=== PATIENT | female | born 1960 | race Caucasian/White ===

== ENCOUNTER 2019-02-26 15:32 | Emergency (ER) | payer OTHER, SELFPAY ==
[2019-02-26 16:49] VITALS: BP 119/59; PULSE 70; RESP 16; TEMP 37.2; O2SAT 96; BMI 29.7
--- NOTE | 2019-02-26 16:54 | DI.RAD.S_ITS ---
PROCEDURE: XR FOOT RT MIN 3V INDICATIONS: FELL RIGHT FOOT PAIN TECHNIQUE: 2 views of the foot were acquired. COMPARISON: None. FINDINGS: Bones: No fractures or dislocations. No suspicious bony lesions. Posterior calcaneal spur. Mild diffuse midfoot spurring. Presumed chronic ununited osteophyte versus dystrophic ossification projecting adjacent to the third MTP joint Soft tissues: No tibiotalar joint effusion. Achilles tendon appears normal. IMPRESSION: No fracture. Scattered degenerative changes as above Dictated by: Karel Ordonez M.D. on 02/26/2019 at 17:14 Approved by: Karel Ordonez M.D. on 02/26/2019 at 17:17
[2019-02-26 19:35] VITALS: BP 115/65; PULSE 64; RESP 18; O2SAT 97
--- NOTE | 2019-02-26 20:43 | ED_ITS ---
HPI - Extremity Injury (Lower) <SHORTY Romero-BC - Last Filed: 02/26/19 20:48> General Chief Complaint: Extremity Injury, Lower Stated Complaint: right foot injury from fall, swelling Time Seen by Provider: 02/26/19 18:55 Source: patient Mode of arrival: Wheelchair Limitations: no limitations History of Present Illness HPI Narrative: The patient is a 58-year-old female nonsmoker with history of asthma who presents with a chief complaint of right foot pain. She states that she tripped going down stairs last night, and now has bruising and pain over the top of her right foot. She has tried elevation and ice. She is unable to take ibuprofen. She has tried Tylenol. She is concerned about a fracture. She denies any numbness or tingling. She denies any other injuries. Related Data Home Medications Medication Instructions Recorded Confirmed albuterol sulfate [ProAir INHALATION 02/26/19 RespiClick] levothyroxine [Synthroid] 100 mcg PO DAILY 02/26/19 02/26/19 Allergies Allergy/AdvReac Type Severity Reaction Status Date / Time acetaminophen [From Percocet] Allergy Verified 02/26/19 16:54 Egg Derived Allergy Verified 02/26/19 16:54 Latex, Natural Rubber Allergy Verified 02/26/19 16:54 oxycodone [From Percocet] Allergy Verified 02/26/19 16:54 azithromycin [From Zithromax] AdvReac Verified 02/26/19 16:54 codeine AdvReac Verified 02/26/19 16:54 erythromycin base AdvReac Verified 02/26/19 16:54 morphine AdvReac Verified 02/26/19 16:54 nitrofurantoin AdvReac Verified 02/26/19 16:54 [From Macrobid] Review of Systems <MANUEL RomeroBC - Last Filed: 02/26/19 20:48> Review of Systems Narrative: GENERAL: Denies chills, fatigue, malaise, fever, sweats. HEENT: Denies sinus pain, ear pain, sore throat, difficulty swallowing, dizziness. RESPIRATORY: Denies dyspnea, cough, wheezing, hemoptysis, sputum. CARDIOVASCULAR: Denies chest pain, palpitations, orthopnea, edema, GASTROINTESTINAL: Denies nausea, vomiting, abdominal pain, diarrhea, constipation, melena. : Denies dysuria, frequency, incontinence, hematuria, urinary retention. MUSCULOSKELETAL: See HPI SKIN: See HPI NEUROLOGIC: Denies weakness, headache, numbness, change in speech, confusion, seizures, incoordination. PSYCHIATRIC: No concerning psychosocial issues. 12 point review of systems is negative except for those stated above Patient History <Clementina FournierSHORTY- - Last Filed: 02/26/19 20:48> Social History Smoking Status: Never smoker Smoking Status: Never smoker Substance Use Type: does not use Exam <[facility] - Last Filed: 02/26/19 20:48> Narrative Exam Narrative: GENERAL: This is a well-nourished, well-developed patient, no acute distress HEAD: Atraumatic. Normocephalic. No temporal or scalp tenderness. EYES: Pupils equal round and reactive. Extraocular motions intact. No scleral icterus. No injection or drainage. ENT: Nose without bleeding, purulent drainage or septal hematoma. Throat without erythema, tonsillar hypertrophy or exudate. Uvula midline. Airway patent. NECK: Trachea midline. No JVD or lymphadenopathy. Supple, nontender, no meningeal signs. CARDIOVASCULAR: Regular rate and rhythm RESPIRATORY: No cough. No increased respiratory effort. No accessory muscle use. EXTREMITIES: Pain to palpation of right foot over navicular. Positive pedal pulses right foot. Wiggling all toes. Able to flex and extend right foot. No pain to palpation right ankle. Capillary refill less than 2 seconds all toes right foot. BACK: Nontender without deformity or crepitance. No flank tenderness. NEURO: AOx3. SKIN: 2 x 2 cm area of ecchymosis noted over right navicular Initial Vital Signs Initial Vital Signs: Vital Signs Temperature 98.9 F 02/26/19 16:49 Pulse Rate 70 02/26/19 16:49 Respiratory Rate 16 02/26/19 16:49 Blood Pressure 119/59 L 02/26/19 16:49 Pulse Oximetry 96 02/26/19 16:49 <Sukhjinder Keane DO - Last Filed: 02/27/19 01:27> Initial Vital Signs Initial Vital Signs: Vital Signs Temperature 98.9 F 02/26/19 16:49 Pulse Rate 70 02/26/19 16:49 Respiratory Rate 16 02/26/19 16:49 Blood Pressure 119/59 L 02/26/19 16:49 Pulse Oximetry 96 02/26/19 16:49 Procedures <SHIVA Romero - Last Filed: 02/26/19 20:48> Orthopedic Splinting/Casting Injury #1: Side: right Lower Extremity Injury Location: foot Lower Extremity Immobilizer: post-op shoe Post splinting neuro exam: intact Post splinting vascular exam: intact Placed by: Nursing Course <SHIVA Romero - Last Filed: 02/26/19 20:48> Orders Ordered: ED Orders 02/26/19 16:54 XR foot RT min 3V Stat Vital Signs Vital signs: Vital Signs - 8 hr 02/26/19 19:35 Pulse Rate 64 Respiratory Rate 18 Blood Pressure [Left Arm] 115/65 Pulse Oximetry 97 <Sukhjinder Keane DO - Last Filed: 02/27/19 01:27> Orders Ordered: ED Orders 02/26/19 16:54 XR foot RT min 3V Stat Vital Signs Vital signs: Vital Signs - 8 hr 02/26/19 19:35 Pulse Rate 64 Respiratory Rate 18 Blood Pressure [Left Arm] 115/65 Pulse Oximetry 97 MDM - Extremity Injury (Lower) <SHIVA Romero - Last Filed: 02/26/19 20:48> Imaging Data Extremity x-ray #1: Radiologist's Impression: [place] [address] XRay Report Signed Patient: Yaa Yanes VMR#: [id number] : 1960Acct:[id number] Age/Sex: 58 / FDate of Service: 02/26/19 Loc: ED Accession Number: [id number] Procedure: XR foot RT min 3V Ordering Provider: Clementina Nascimento D.O. PROCEDURE: XR FOOT RT MIN 3V INDICATIONS: FELL RIGHT FOOT PAIN TECHNIQUE: 2 views of the foot were acquired. COMPARISON: None. FINDINGS: Bones: No fractures or dislocations. No suspicious bony lesions. Posterior calcaneal spur. Mild diffuse midfoot spurring. Presumed chronic ununited osteophyte versus dystrophic ossification projecting adjacent to the third MTP joint Soft tissues: No tibiotalar joint effusion. Achilles tendon appears normal. IMPRESSION: No fracture. Scattered degenerative changes as above Dictated by: Karel Ordonez M.D. on 02/26/2019 at 17:14 Approved by: Karel Ordonez M.D. on 02/26/2019 at 17:17 [facility] Narrative Medical decision making narrative: The patient is a 58-year-old female who presents with a chief complaint of right foot pain after tripping and missing a step last night. She has ecchymosis and tenderness on exam. X-rays negative for fracture. Discussed possibility of soft tissue injury, occult fracture cetera. Patient was placed in a postoperative shoe and felt improved. Discussed at length rest ice compression elevation as well as the importance of follow-up with primary care provider. Patient states she does not tolerate pain medication and does not want any. Patient has no questions or concerns upon discharge and states understanding of return precautions of any acute concerns as well as follow-up care. Discharge Plan Departure Patient Disposition: Home Clinical Impression: Contusion of foot, right Qualifiers: Encounter type: initial encounter Qualified Code(s): S90.31XA - Contusion of right foot, initial encounter Acute foot pain Qualifiers: Laterality: right Qualified Code(s): M79.671 - Pain in right foot Discharge Date/Time: 02/26/19 19:46 Instructions: DI for Contusion, How To Perform RICE (Rest, Ice, Compress, Elevate) Activity Restrictions/Additional Instructions: As I discussed, your x-ray shows no acute fracture. This does not rule out a soft tissue injury such as a ligament or tendon injury. It is important that you follow up with primary care provider, especially if worsening or no improvement. There can be fractures that did not show up on initial x-ray. Please follow-up with primary care provider in a few days. Please use rest ice compression elevation as well as [id number] medications as needed and able. Please come back to the emergency department for any acute concerns. Prescriptions: No Action levothyroxine [Synthroid] 100 mcg tablet 100 mcg PO DAILY RF: 0 ProAir RespiClick 90 mcg/actuation aerosol powdr breath activated INHALATION RF: 0 Referrals: Rocael Pinto MD [Primary Care Provider] -
== END 2019-02-26 19:46 | disposition home or self-care (01) ==
PROVIDERS: Emergency Provider Nurse Practitioner Family; Family Provider Family Medicine; PCP Family Medicine
DX: S90.31XA Contusion of right foot, initial encounter (principal); W10.9XXA Fall (on) (from) unspecified stairs and steps, initial encounter
CPT/HCPCS: 73630; 99281; 99283

== ENCOUNTER 2021-11-06 17:19 | Emergency (ER) | payer OTHER, SELFPAY ==
[2021-11-06 17:33] VITALS: BP 134/65; PULSE 64; RESP 18; TEMP 36.8; O2SAT 98; BMI 30.4
--- NOTE | 2021-11-06 19:06 | DI.RAD.S_ITS ---
PROCEDURE: XR FOOT RT MIN 3V INDICATIONS: swelling dorsum lateral foot after crush injury TECHNIQUE: 3 views of the foot were acquired. COMPARISON: [facility], , XR FOOT RT MIN 3V, 02/26/2019, 16:51. FINDINGS: Bones: No fractures or dislocations. No suspicious bony lesions. Soft tissues: No tibiotalar joint effusion. Achilles tendon appears normal. IMPRESSION: Normal right foot Dictated by: Maninder Trammell M.D. on 11/06/2021 at 19:39 Approved by: Maninder Trammell M.D. on 11/06/2021 at 19:40
--- NOTE | 2021-11-06 19:06 | ED.LOWEXIN ---
HPI - Extremity Injury (Lower) General Chief Complaint: Extremity Injury, Lower Stated Complaint: Cyst rupture on rt foot Time Seen by Provider: 11/06/21 18:58 Source: patient Mode of arrival: Ambulatory Limitations: no limitations History of Present Illness HPI Narrative: Patient is a 61-year-old female who states that she has a cyst on her right foot that developed after an injury in the past. She is scheduled to have this removed by foot and ankle specialist. 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 She states that ever since that time the cyst seems to be smaller and there is swelling around the area. She is also having difficulty walking on the foot. She was concerned that potentially the cyst had ruptured and your family member had told her that there is potentially an infection. Related Data Home Medications Medication Instructions Recorded Confirmed albuterol sulfate 90 mcg/actuation See Rx Instructions .Route 02/26/19 11/06/21 breath activated powder inhaler .COMPLEX PRN Shortness Of Breath (ProAir RespiClick) levothyroxine 100 mcg tablet 100 mcg PO DAILY 02/26/19 11/06/21 (Synthroid) Allergies Allergy/AdvReac Type Severity Reaction Status Date / Time acetaminophen [From Percocet] Allergy Verified 11/06/21 17:35 Egg Derived Allergy Verified 11/06/21 17:35 Latex, Natural Rubber Allergy Verified 11/06/21 17:35 oxycodone [From Percocet] Allergy Verified 11/06/21 17:35 azithromycin [From Zithromax] AdvReac Verified 11/06/21 17:35 codeine AdvReac Verified 11/06/21 17:35 erythromycin base AdvReac Verified 11/06/21 17:35 morphine AdvReac Verified 11/06/21 17:35 nitrofurantoin AdvReac Verified 11/06/21 17:35 [From Macrobid] Review of Systems Constitutional Constitutional: Reports system reviewed and no additional complaints, except as documented Musculoskeletal Musculoskeletal: Reports system reviewed and no additional complaints, except as documented Integumentary/Breasts Skin/Breast: Reports system reviewed and no additional complaints, except as documented Neurologic Neurologic: Reports system reviewed and no additional complaints, except as documented Patient History Medical History Hypothyroid Social History Smoking Status: Never smoker Smoking Status: Never smoker Substance Use Type: does not use Exam Initial Vital Signs Initial Vital Signs: Vital Signs Temperature 98.2 F 11/06/21 17:33 Pulse Rate 64 11/06/21 17:33 Respiratory Rate 18 11/06/21 17:33 Blood Pressure 134/65 11/06/21 17:33 Pulse Oximetry 98 11/06/21 17:33 Oxygen Delivery Method 11/06/21 17:33 Const General: cooperative and comfortable HENMT Head: normal to inspection and normocephalic Resp Effort & Inspection: normal respiratory effort Cardio Rate: regular rate Pulses: dorsalis pedis present on the right Skin Other: Slight swelling along the lateral aspect of the right midfoot. There is no erythema. Neuro Other: Patient reports some tingling to the distal portion of the right foot lateral aspect. Extrem Other: Swelling and discomfort to the lateral aspect of the right midfoot. Ankle is unremarkable. Achilles tendons unremarkable. Right calf muscles unremarkable. Course Orders Ordered: ED Orders 11/06/21 19:06 XR foot RT min 3V Stat Vital Signs Vital signs: Vital Signs - 8 hr 11/06/21 17:33 Temperature 98.2 F Pulse Rate 64 Respiratory Rate 18 Blood Pressure 134/65 Pulse Oximetry 98 Oxygen Delivery Method Room Air MDM - Extremity Injury (Lower) MDM Narrative Medical decision making narrative: X-ray shows no signs of fracture. She does have swelling along the lateral aspect of the right mid foot. There does appear to be a small cyst in this area with the patient states it is smaller. Informed her that there is the possibility of assisted rupture given the fact that the area did have a crush injury to it. There is no signs of any infection. No further workup required here in the emergency department. Will have her continue to follow-up with the orthopedic providers. She was given return precautions. She expressed understanding and agreement. Discharge Plan Departure Patient Disposition: Home Clinical Impression: Contusion of foot, right Instructions: DI for Contusion Activity Restrictions/Additional Instructions: You can ice your foot. You can use the lidocaine patches like we discussed. I do recommend you contact the foot and ankle certified medical coding specialist tomorrow to let them know that you were seen here in the ER. Return to the emergency department for any new or worsening symptoms. Prescriptions: No Action levothyroxine [Synthroid] 100 mcg tablet 100 mcg PO DAILY ProAir RespiClick 90 mcg/actuation aerosol powdr breath activated See Rx Instructions .ROUTE .COMPLEX PRN (Reason: Shortness Of Breath) Rx Instructions: 1 puff Referrals: Sadaf Leigh PA-C [Primary Care Provider] - Visit Report Forms: Patient Portal/API
== END 2021-11-06 20:02 | disposition home or self-care (01) ==
PROVIDERS: Emergency Provider Emergency Medicine; Family Provider Family Medicine; PCP Physician Assistant
DX: S90.31XA Contusion of right foot, initial encounter (principal)
CPT/HCPCS: 73630; 99281; 99283

== ENCOUNTER 2023-11-02 16:54 | Emergency (ER) | payer OTHER, SELFPAY ==
[2023-11-02 16:58] VITALS: BP 127/59; PULSE 63; RESP 16; TEMP 36.3; O2SAT 98
--- NOTE | 2023-11-02 17:02 | DI.RAD.S_ITS ---
PROCEDURE: XR FOOT RT MIN 3V INDICATIONS: pain with ambulation TECHNIQUE: 3 views of the foot were acquired. COMPARISON: [facility], CR, XR FOOT RT MIN 3V, 11/06/2021, 19:06. [facility], CR, XR FOOT RT MIN 3V, 02/26/2019, 16:51. FINDINGS: Bones: No fractures or dislocations. No suspicious bony lesions. An Achilles insertional enthesophyte is present. Soft tissues: No tibiotalar joint effusion. Achilles tendon appears normal. IMPRESSION: No acute bony abnormality. Dictated by: Huma Cruz M.D. on 11/02/2023 at 16:19 Approved by: Huma Cruz M.D. on 11/02/2023 at 16:20
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
== END 2023-11-02 17:45 | disposition home or self-care (01) ==
PROVIDERS: Emergency Provider Registered Nurse; Family Provider Family Medicine
DX: M79.671 Pain in right foot (principal); X58.XXXA Exposure to other specified factors, initial encounter
CPT/HCPCS: 73630; 99283

== ENCOUNTER 2024-02-08 11:07 | Emergency (ER) | payer OTHER, SELFPAY ==
[2024-02-08 11:14] VITALS: BP 138/59; PULSE 71; RESP 16; TEMP 37.1; O2SAT 97; BMI 30.9
--- NOTE | 2024-02-08 11:20 | ED_ITS ---
HPI - Extremity Injury (Lower) <Cheryl Hernandez PA-C - Last Filed: 02/08/24 12:44> General Chief Complaint: Extremity Injury, Lower Stated Complaint: Sanchez no longer load bearing Time Seen by Provider: 02/08/24 11:19 Source: patient Mode of arrival: Wheelchair History of Present Illness HPI Narrative: A 63-year-old woman with a history of hypothyroid presenting with concern for right knee pain and difficulty weight-bearing since last night. Patient states she went to the [employer] and was on the dance floor dancing to a [employer] song. She says ?I think I am 19 but I am not 20?. She states she had her hands up in the air and she was jumping up and when she came down to land she felt a pop in her right knee and it felt like it was giving out. She did not go to the ground but she required assistance from her daughter to get off the dance floor. Went home last night and had a lot of difficulty getting up the exterior steps into her home she applied Voltaren gel and also tried some numbing topical medicine over the knee and took Tylenol last night. This morning when she wake up she attempted to bear weight and was unable to. She states it was a combination of pain and feeling like her knee might ?give out?. She has been scooting around on her but since then and using assistance to move. She does state that about 5 years ago she may have injured her right knee did have to have physical therapy for it after she had some gait changes and a cyst on her right foot removed. She occasionally has pain in the right knee since that time. Today on the drive in she felt like her lower leg was a little ?tingly?. Her leg is most comfortable fairly straight or slightly bent she states her pain is worse if she flexes it to 90?. She also endorses that she has some pain traveling up the back of her thigh on the right side feels like ?a muscle?. She denies any other injuries complaints or concerns. Related Data Home Medications Medication Instructions Recorded Confirmed albuterol sulfate 90 mcg/actuation See Rx Instructions .Route 02/26/19 11/06/21 breath activated powder inhaler .COMPLEX PRN Shortness Of Breath (ProAir RespiClick) levothyroxine 100 mcg tablet 100 mcg PO DAILY 02/26/19 11/06/21 (Synthroid) Allergies Allergy/AdvReac Type Severity Reaction Status Date / Time Egg Derived Allergy Anaphylaxis Verified 02/08/24 11:18 azithromycin [From Zithromax] AdvReac Verified 02/08/24 11:18 codeine AdvReac Vomiting Verified 02/08/24 11:18 erythromycin base AdvReac Verified 02/08/24 11:18 Latex, Natural Rubber AdvReac Rash Verified 02/08/24 11:18 morphine AdvReac Vomiting Verified 02/08/24 11:18 nitrofurantoin AdvReac Verified 02/08/24 11:18 [From Macrobid] oxycodone [From Percocet] AdvReac Vomiting Verified 02/08/24 11:18 Review of Systems <Cheryl Hernandez PA-C - Last Filed: 02/08/24 12:44> Review of Systems Narrative: See HPI Patient History <Cheryl Hernandez PA-C - Last Filed: 02/08/24 12:44> Medical History Hypothyroid Social History Smoking Status: Never smoker Smoking Status: Never smoker Exam <Cheryl Hernandez PA-C - Last Filed: 02/08/24 12:44> Narrative Exam Narrative: GENERAL: [63] year old patient appears stated age. Well-developed patient, in mild distress. HEAD: Atraumatic. Normocephalic. EYES: Pupils equal round and reactive. Extraocular motions intact. No scleral icterus. No injection or drainage. ENT: Nose without bleeding, purulent drainage. Airway patent. NECK: Trachea midline. CARDIOVASCULAR: Regular rate and rhythm. RESPIRATORY: Increased work of breathing or respiratory distress GASTROINTESTINAL: Abdomen nondistended. EXTREMITIES: Right knee is held slightly flexed at about 15?. There is mild swelling of the lateral knee joint with tenderness most prominent in the popliteal fossa laterally, also medial joint line tenderness on the right. Negative anterior posterior drawer. She is able to perform dorsiflexion and plantar flexion of the ankle but this increases her knee pain. Strong distal pulse. Skin color is pink, warm. There is no ballottement or tenderness of the anterior knee or medial knee. No edema or joint tenderness. NEURO: AOx3. SKIN: No rash or erythema of visible areas Initial Vital Signs Initial Vital Signs: Vital Signs Temperature 98.8 F 02/08/24 11:14 Pulse Rate 71 02/08/24 11:14 Respiratory Rate 16 02/08/24 11:14 Blood Pressure 138/59 L 02/08/24 11:14 Pulse Oximetry 97 02/08/24 11:14 Oxygen Delivery Method Room Air 02/08/24 11:14 <Joselyn Morgan DO - Last Filed: 02/09/24 07:03> Initial Vital Signs Initial Vital Signs: Vital Signs Temperature 98.8 F 02/08/24 11:14 Pulse Rate 71 02/08/24 11:14 Respiratory Rate 16 02/08/24 11:14 Blood Pressure 138/59 L 02/08/24 11:14 Pulse Oximetry 97 02/08/24 11:14 Oxygen Delivery Method Room Air 02/08/24 11:14 Course <Cheryl Hernandez PA-C - Last Filed: 02/08/24 12:44> Orders Ordered: Discontinued Medications Acetaminophen (Acetaminophen 325 Mg Tablet) 650 mg PO NOW ONE Stop: 02/08/24 11:36 Last Admin: 02/08/24 12:00 Dose: 650 mg Documented By: ANNA Vital Signs Vital signs: Vital Signs - 8 hr 02/08/24 11:14 Temperature 98.8 F Pulse Rate 71 Respiratory Rate 16 Blood Pressure 138/59 L Pulse Oximetry 97 Oxygen Delivery Method Room Air <Joselyn Morgan DO - Last Filed: 02/09/24 07:03> Orders Ordered: Discontinued Medications Acetaminophen (Acetaminophen 325 Mg Tablet) 650 mg PO NOW ONE Stop: 02/08/24 11:36 Last Admin: 02/08/24 12:00 Dose: 650 mg Documented By: ANNA Vital Signs Vital signs: Vital Signs - 8 hr 02/08/24 11:14 Temperature 98.8 F Pulse Rate 71 Respiratory Rate 16 Blood Pressure 138/59 L Pulse Oximetry 97 Oxygen Delivery Method Room Air MDM - Extremity Injury (Lower) <CATA Thorne Last Filed: 02/08/24 12:44> Imaging Data Extremity x-ray #1: My Impression: Agree with Radiology interpretation Radiologist's Impression: [address] [address] XRay Report Signed Patient: Yaa Yanes V MR#: [id number] : 1960 Acct:[id number] Age/Sex: 63 / F Date of Service: 02/08/24 Loc: ED Accession Number: [id number] Procedure: XR knee RT 3V Ordering Provider: Cheryl Hernandez PA-C PROCEDURE: XR KNEE RT 3V INDICATIONS: non weightbear rknee since injury/jump land pop TECHNIQUE: 3 views of the knee were acquired. COMPARISON: None. FINDINGS: Bones: No fractures or dislocations. No suspicious bony lesions. Soft tissues: No joint effusion. No suspicious soft tissue calcifications. IMPRESSION: No acute bony abnormality or significant effusion. Dictated by: Huma Cruz M.D. on 02/08/2024 at 11:07 Approved by: Huma Cruz M.D. on 02/08/2024 at 11:08 [facility] Narrative Medical decision making narrative: This is a 63-year-old woman with hypothyroid, previous knee injury about 5 years ago presenting with concern for right knee pain and difficulty weight-bearing since she landed on it last night after jumping and felt a pop. X-rays obtained for further evaluation. Exam is concerning for possibly sprain/muscle strain and /or Ng's cyst rupture Xrays show: No evidence of fracture and no effusion Patient placed in a knee brace and provided with crutches/crutch training. Advised regarding RI CE, attempting to be nonweightbearing as much as possible gradual return to normal activity as tolerated. Information provided for office number of physical therapy and orthopedics. Return precautions provided, follow-up plan discussed, all questions answered. Discharge Plan Departure Patient Disposition: Home Clinical Impression: Sprain of right knee Qualifiers: Encounter type: initial encounter Involved ligament of knee: unspecified ligament Qualified Code(s): S83.91XA - Sprain of unspecified site of right knee, initial encounter Activity Restrictions/Additional Instructions: *You have been diagnosed with [knee sprain ] *What to do: *Please continue to take your regular medications as directed. [ ] New medication prescriptions sent to your pharmacy: [ ] [ ] New medication written as a paper prescription [ X] No new medications given *Please follow up with your primary care provider in 2-3 days, call for an appointment. Let them know you were seen in the Emergency Department and that we ask that you be seen in follow up. We will electronically transmit a record of today's note if your PCP is in our system. Your x-rays look good today. No evidence of fracture. Certainly seems like you have pulled a muscle when you injured herself yesterday and also likely have a knee sprain, please try to wear the knee immobilizer as much as possible when you are and about this will help to keep her leg in a more comfortable position. Try to be nonweightbearing. I have included information for physical therapy as well as Orthopedics below though you can certainly follow up with your primary care provider. You can continue with the diclofenac and topical pain relieving gel/numbing gel. I recommend you keep up on Tylenol. Elevation will also be helpful especially for the next few days whenever you are sitting or at rest. Hope you feel better soon. *If you do not have a primary care provider please contact the [facility] Resource line at [phone]. They will ask some questions about your medical history and help get you set up with a doctor in the community. *Return to Emergency Department if you should have any new, worsening or concerning symptoms, such as [fever greater than 101 F, shaking chills, worsening pain, persistent vomiting or other bothersome symptoms] Prescriptions: No Action levothyroxine [Synthroid] 100 mcg tablet 100 mcg PO DAILY ProAir RespiClick 90 mcg/actuation aerosol powdr breath activated See Rx Instructions .ROUTE .COMPLEX PRN (Reason: Shortness Of Breath) Rx Instructions: 1 puff Referrals: Marissa Reid, PT [Non-Staff] - Provider,Sarwat LOCKE [Primary Care Provider] - Jackie Contreras MD [Physician] - (R knee sprain/pain w/ weight bear XR neg) Stand Alone Forms: Patient Portal/API/Survey ED Sign-out <Joselyn Morgan DO - Last Filed: 02/09/24 07:03> Cosign ED Attending Benedict Attestation: I was available for consultation.
[2024-02-08] MEDS: ACETAMINOPHEN 325 MG TABLET 650 MG PO (12:00)
== END 2024-02-08 12:22 | disposition home or self-care (01) ==
PROVIDERS: Emergency Provider Student in an Organized Health Care Education/Training Program; Family Provider Family Medicine
DX: S83.91XA Sprain of unspecified site of right knee, initial encounter (principal); X50.3XXA Overexertion from repetitive movements, initial encounter; Y93.41 Activity, dancing
CPT/HCPCS: 73562; 99283